=== PATIENT | female | born 1940 | race Caucasian/White ===

== ENCOUNTER 2017-01-21 15:56 | Emergency (ER) | payer OTHER, MEDICARE ==
[~2017-01-21] VITALS: Ht 162.6 cm; Wt 70.3 kg
[2017-01-21 16:04] VITALS: BP_SYST 145
== END 2017-01-21 17:06 | disposition home or self-care (01) ==
LOC: SED 15:56
DX: L03.114 Cellulitis of left upper limb (principal); I10 Essential (primary) hypertension; Z90.49 Acquired absence of other specified parts of digestive tract; Z90.11 Acquired absence of right breast and nipple; Z88.6 Allergy status to analgesic agent; Z88.8 Allergy status to other drugs, medicaments and biological substances
CPT/HCPCS: 99283; J7030

== ENCOUNTER 2019-01-05 12:52 | Emergency (ER) | payer OTHER, MEDICARE ==
[~2019-01-05] VITALS: Ht 162.6 cm; Wt 70.3 kg
[2019-01-05 12:57] VITALS: BP_SYST 152
[2019-01-05 13:58] VITALS: BP_SYST 152
== END 2019-01-05 13:55 | disposition home or self-care (01) ==
LOC: SED 12:52
DX: S40.861A Insect bite (nonvenomous) of right upper arm, initial encounter (principal); I10 Essential (primary) hypertension; Z88.8 Allergy status to other drugs, medicaments and biological substances; W57.XXXA Bitten or stung by nonvenomous insect and other nonvenomous arthropods, initial encounter; Y93.89 Activity, other specified; Y92.89 Other specified places as the place of occurrence of the external cause; Y99.8 Other external cause status
CPT/HCPCS: 99283